=== PATIENT | female | born 1950 | race Caucasian/White ===

== ENCOUNTER 2024-02-24 15:44 | Outpatient (CLI) | payer MEDICARE ==
[2024-02-24 16:16] LABS: #Basophils 0.04 10x3/uL (0.0-0.2); #Eosinphils 0.13 10x3/uL (0.0-0.5); #Monocytes 0.45 10x3/uL (0.0-1.1); #Neutrophils 4.37 10x3/uL (1.5-8.4); %Basophils 0.6 % (0.0-2.0); %Lymphocytes 22.2 % (18.0-47.0); %Neutrophils 67.9 % (40.0-75.0); Hematocrit 32.3 % (34.9-44.5); Hemoglobin 10.8 g/dL (12.0-15.5); Mean Corpuscular HGB CONC 33.4 g/dL (32.0-36.0); Mean Corpuscular Hemoglobin 29.3 pg (27.0-33.0); Mean Corpuscular Volume 87.8 fl (81.6-98.3); Mean Platelet Volume 9.5 fl (7.4-10.4); Platelet Count 247 10x3/uL (150-450); Red Blood Cell (RBC) Count 3.68 10x6/uL (3.90-5.03); White Blood Cell (WBC) Count 6.4 10x3/uL (3.5-10.5)
[2024-02-24 16:30] LABS: Anion Gap 17 mmol/L (10-20); BUN (Urea Nitrogen) 46 mg/dL (9.8-20.1); Calc. Creatinine Clearance 0 mL/min (70-130); Calcium 9.4 mg/dL (7.8-10.44); Carbon Dioxide 19 mmol/L (23-31); Chloride 110 mmol/L (98-107); Estimated GFR 18; Glucose 86 mg/dL (83-110); Sodium 141 mmol/L (136-145)
== END 2024-02-24 15:45 | disposition home or self-care (01) ==
LOC: LABBT 15:44
PROVIDERS: ATTEND Orthopaedic Surgery
DX: Z01.818 Encounter for other preprocedural examination (principal); M70.21 Olecranon bursitis, right elbow
CPT/HCPCS: 80048; 85025; 93005; 93010

== ENCOUNTER 2024-03-03 08:12 | Day surgery (SDC) | payer MEDICARE ==
[2024-02-24 15:58] VITALS: BMI 33.0
[2024-03-03] MEDS ORDERED: PROPOFOL 20 ML ONE (08:31)
[2024-03-03] MEDS ORDERED: fentaNYL 50 mcg/mL 1 mL Vial ONE (08:31)
[2024-03-03] MEDS ORDERED: Sodium Chloride 0.9% 100 ML ONE (08:44)
[2024-03-03] MEDS ORDERED: CEFAZOLIN 2 GM VIAL ONE (08:44)
[2024-03-03] MEDS ORDERED: Lidocaine 2% PF 5 ML VIAL ONE ×2 (09:12→10:11)
[2024-03-03] MEDS ORDERED: ePHEDrine Sulfate 50 MG/10 ML VIAL ONE (09:50)
[2024-03-03] MEDS ORDERED: Ondansetron PF 4 MG/2 ML Vial ONE (09:55)
[2024-03-03] MEDS ORDERED: Dexamethasone 20 MG/5 ML VIAL ONE (09:55)
[2024-03-03] MEDS ORDERED: EPINEPHrine 1 MG/ML VIAL ONE (10:03)
[2024-03-03] MEDS ORDERED: Bupivacaine 0.25% HCL 30 ML VIAL ONE (10:04)
[2024-03-03] MEDS ORDERED: SUGAMMADEX SODIUM 200 MG/2 ML VIAL ONE (10:11)
[2024-03-03] MEDS ORDERED: Glycopyrrolate 0.2 MG/ML 5 ML SYRINGE ONE (10:12)
== END 2024-03-03 12:45 | disposition home or self-care (01) ==
LOC: SDC 08:12
PROVIDERS: ATTEND Orthopaedic Surgery
PROC: 0MT30ZZ Resection of Right Elbow Bursa and Ligament, Open Approach (ICD-10-PCS; principal; 2024-03-03)
DX: M70.21 Olecranon bursitis, right elbow (principal); M70.22 Olecranon bursitis, left elbow; I10 Essential (primary) hypertension; Z79.899 Other long term (current) drug therapy; Z91.040 Latex allergy status; Z91.048 Other nonmedicinal substance allergy status; Z98.890 Other specified postprocedural states
CPT/HCPCS: 24105; 87070; 87075; 87205; 93005; A6223; J0171; J3010; 88304; 88313; 93010; J0665; J1100; J2001; J2405; J2704; J3490